=== PATIENT | female | born 2000 | race African-American/Black ===

== ENCOUNTER 2020-09-14 17:39 | Outpatient (REF) | payer OTHER, SELFPAY | END 2020-09-14 17:40 | disposition home or self-care (01) | LOC: HO.LAB 17:39 | PROVIDERS: Visit Provider Internal Medicine | DX: Z20.822 Contact with and (suspected) exposure to COVID-19 (principal) | CPT/HCPCS: 36415; C9803; U0003 ==

== ENCOUNTER 2022-11-25 17:03 | Emergency (ER) | payer OTHER, SELFPAY ==
--- NOTE | ~2022-11-25 | XR_ITS ---
X-ray cervical, thoracic and lumbar spine CLINICAL HISTORY: Fall. COMPARISON: X-ray cervical spine 10/26/2007. TECHNIQUE: 3 views of the cervical spine. 3 views of the thoracic spine. 3 views of the lumbar spine. FINDINGS: Cervical spine: Nonspecific straightening of the cervical lordosis with otherwise anatomic alignment. No acute compression deformity. No significant degenerative changes. No prevertebral soft tissue thickening. Thoracic spine: Mild S-shaped thoracolumbar curvature. No acute compression deformity or subluxation. Normal appearance of the posterior elements. No significant degenerative changes. No significant paraspinal soft tissue abnormality. Lumbar spine: No acute compression deformity or subluxation. No significant degenerative changes. No paraspinal soft tissue abnormality. XR/XR cervical spine 2V IMPRESSION: 1. Nonspecific straightening of the cervical lordosis. 2. No acute compression deformity or subluxation in the cervical, thoracic or lumbar spine.
--- NOTE | ~2022-11-25 | XR_ITS ---
X-ray cervical, thoracic and lumbar spine CLINICAL HISTORY: Fall. COMPARISON: X-ray cervical spine 10/26/2007. TECHNIQUE: 3 views of the cervical spine. 3 views of the thoracic spine. 3 views of the lumbar spine. FINDINGS: Cervical spine: Nonspecific straightening of the cervical lordosis with otherwise anatomic alignment. No acute compression deformity. No significant degenerative changes. No prevertebral soft tissue thickening. Thoracic spine: Mild S-shaped thoracolumbar curvature. No acute compression deformity or subluxation. Normal appearance of the posterior elements. No significant degenerative changes. No significant paraspinal soft tissue abnormality. Lumbar spine: No acute compression deformity or subluxation. No significant degenerative changes. No paraspinal soft tissue abnormality. XR/XR lumbar spine 2-3V IMPRESSION: 1. Nonspecific straightening of the cervical lordosis. 2. No acute compression deformity or subluxation in the cervical, thoracic or lumbar spine.
--- NOTE | ~2022-11-25 | XR_ITS ---
X-ray cervical, thoracic and lumbar spine CLINICAL HISTORY: Fall. COMPARISON: X-ray cervical spine 10/26/2007. TECHNIQUE: 3 views of the cervical spine. 3 views of the thoracic spine. 3 views of the lumbar spine. FINDINGS: Cervical spine: Nonspecific straightening of the cervical lordosis with otherwise anatomic alignment. No acute compression deformity. No significant degenerative changes. No prevertebral soft tissue thickening. Thoracic spine: Mild S-shaped thoracolumbar curvature. No acute compression deformity or subluxation. Normal appearance of the posterior elements. No significant degenerative changes. No significant paraspinal soft tissue abnormality. Lumbar spine: No acute compression deformity or subluxation. No significant degenerative changes. No paraspinal soft tissue abnormality. XR/XR thoracic spine 2V IMPRESSION: 1. Nonspecific straightening of the cervical lordosis. 2. No acute compression deformity or subluxation in the cervical, thoracic or lumbar spine.
[2022-11-25 17:54] VITALS: BP 111/71; PULSE 83; RESP 18; TEMP 36.3; O2SAT 99; BMI 36.4
--- NOTE | 2022-11-25 17:54 | ED.GENADULT ---
HPI - General Adult General Chief complaint: Back Pain/Injury <LINWOOD Spencer - Last Filed: 11/25/22 17:55> Stated complaint: Fall on 11/23 neck and back pain <LINWOOD Spencer - Last Filed: 11/25/22 17:55> Time Seen by Provider: 11/25/22 20:30 <LINWOOD Spencer - Last Filed: 11/25/22 17:55> Source: patient and RN notes reviewed <Bony Gaines - Last Filed: 11/25/22 21:06> Mode of arrival: ambulatory <Bony Gaines - Last Filed: 11/25/22 21:06> Limitations: no limitations <Bony Gaines - Last Filed: 11/25/22 21:06> History of Present Illness HPI narrative: 22-year-old female presents for evaluation after a fall that happened 2 days ago. Patient reports that or getting out of a car she slipped and fell backwards in a parking lot. She complains of mostly right lateral neck pain but also pain to her mid and lower back Denies hitting her head or losing consciousness. She is not on blood thinners for any reason. The patient states that she initially did not have significant pain at the time of the fall The pain worsened yesterday morning and then progressively worsened again today Her pain is he had of 10, worse with movement. She has tried heating pads, naproxen and Flexeril that she had left over from a previous prescription with minimal relief <Bony Gaines - Last Filed: 11/25/22 21:06> Related Data Home medications: Previous Rx's Medication Instructions Recorded cyclobenzaprine 10 mg tablet 10 mg PO TID PRN muscle spasm #20 11/25/22 tabs naproxen 500 mg tablet 500 mg PO BID PRN pain #20 tabs 11/25/22 <LINWOOD Spencer - Last Filed: 11/25/22 17:55> Allergies/adverse reactions: Allergies Allergy/AdvReac Type Severity Reaction Status Date / Time No Known Allergies Allergy Verified 11/25/22 17:54 <LINWOOD Spencer - Last Filed: 11/25/22 17:55> Review of Systems Constitutional: Constitutional: Reports as per HPI, Denies chills, Denies fever(s) and Denies headache(s) <Bony Freeman Last Filed: 11/25/22 21:06> ENT: Denies headache(s) and Reports neck pain <Bony Freeman Last Filed: 11/25/22 21:06> Cardiovascular: Cardiovascular: Denies chest pain and Denies dyspnea <Bonythor Freeman Last Filed: 11/25/22 21:06> Respiratory: Respiratory: Denies cough and Denies dyspnea <Bonythor Freeman Last Filed: 11/25/22 21:06> Musculoskeletal: Musculoskeletal: Reports back pain and Reports neck pain <Bonythor Freeman Last Filed: 11/25/22 21:06> Neurologic: Denies headache(s) and Denies focal weakness <Bony O' Last Filed: 11/25/22 21:06> PMFSH Social History Social History: Social History Advance Directives: No Advance Directives Information Provided: No <LINWOOD Spencer - Last Filed: 11/25/22 17:55> Physical Exam ED Vital Signs: Vital Signs - 24 hr 11/25/22 17:54 Temperature 97.3 F Pulse Rate 83 Respiratory Rate 18 Blood Pressure 111/71 Pulse Oximetry 99 Oxygen Delivery Method Room Air BMI result Body Mass Index 36.4 <LINWOOD Spencer - Last Filed: 11/25/22 17:55> Vital Signs - 24 hr 11/25/22 17:54 Temperature 97.3 F Pulse Rate 83 Respiratory Rate 18 Blood Pressure 111/71 Pulse Oximetry 99 Oxygen Delivery Method Room Air BMI result Body Mass Index 36.4 <Bony Gaines Last Filed: 11/25/22 21:06> Const General: healthy appearing, comfortable, no acute distress, alert and awake <Bony Gaines Last Filed: 11/25/22 21:06> Nutritional Appearance: well nourished <Bony Freeman Last Filed: 11/25/22 21:06> Orientation/consciousness: patient oriented x3 <Bony Gaines Last Filed: 11/25/22 21:06> HENMT Head: Yes normocephalic and Yes atraumatic <Bony Gaines Last Filed: 11/25/22 21:06> Throat: Yes posterior oropharynx normal < Filed: 11/25/22 21:06> Eyes Eyelids: Yes eyelids normal < Filed: 11/25/22 21:06> Conjunctivae: conjunctivae normal < Filed: 11/25/22 21:06> Sclerae: sclerae normal < Filed: 11/25/22 21:06> Corneas: corneas normal < Filed: 11/25/22 21:06> Pupils: Equal, round and reactive pupils present < Filed: 11/25/22 21:06> EOM: EOMs intact bilaterally < Filed: 11/25/22 21:06> Neck Other: Tenderness to the right lateral cervical paraspinous region the tenderness extends the right trapezius muscle group. No vertebral tenderness. Patient also has right thoracic paraspinous muscle tenderness, no step-offs or deformities < Filed: 11/25/22 21:06> Skin General skin exam: no rashes or lesions noted and elasticity normal < Filed: 11/25/22 21:06> Neuro General: patient oriented x3 < Filed: 11/25/22 21:06> Cranial nerves: Yes CN's II-XII intact bilaterally, Yes Equal, round and reactive pupils present and Yes Bilaterally intact EOM present < Filed: 11/25/22 21:06> Cognition (Neuro): normal cognition < Filed: 11/25/22 21:06> Motor exam (neuro): 5/5 motor strength present throughout < Filed: 11/25/22 21:06> Extrem Other: Moving all extremities well without any obvious deformities. < Filed: 11/25/22 21:06> Course Course Course Narrative: RME performed by Brionna Wyatt PA-C. Patient is a 22 year old assigned female at presenting to the emergency department with back pain after a fall. Patient states that she fell and now has back pain and neck pain. Imaging ordered. Patient placed back in the waiting room pending room availability and results. <LINWOOD Spencer - Last Filed: 11/25/22 17:55> Medications Administered Discontinued Medications Generic Name Dose Route Start Last Admin Trade Name Freq PRN Reason Stop Dose Admin Ketorolac Tromethamine 30 mg 11/25/22 20:36 11/25/22 20:42 Ketorolac Tromethamine 30 Mg/Ml Vial IM 11/25/22 20:37 30 mg ONCE ONE Administration <LINWOOD Spencer - Last Filed: 11/25/22 17:55> Medications Administered Discontinued Medications Generic Name Dose Route Start Last Admin Trade Name Freq PRN Reason Stop Dose Admin Ketorolac Tromethamine 30 mg 11/25/22 20:36 11/25/22 20:42 Ketorolac Tromethamine 30 Mg/Ml Vial IM 11/25/22 20:37 30 mg ONCE ONE Administration <Bony Gaines - Last Filed: 11/25/22 21:06> Medical Decision Making Medical Decision Making MDM Narrative: 22-year-old female presents for evaluation of right cervical paraspinous muscle tenderness and trapezius tenderness after fall 2 days ago. X-rays show no evidence of compression fracture or deformity. Pain is likely a muscle spasm, will treat with Toradol IM. The patient states that she is out of her previous prescriptions now. She would like to continue using the Flexeril which will be prescribed for her. No evidence of neuro deficits <Bony Gaines - Last Filed: 11/25/22 21:06> Differential Diagnosis Muscle strain Radiculopathy A compression fracture Back pain Neck pain Spasmodic torticollis <Bony Gaines - Last Filed: 11/25/22 21:06> Discharge Plan Discharge Clinical Impression: Cervical muscle strain <LINWOOD Spencer - Last Filed: 11/25/22 17:55> Patient Disposition: Home, Self-Care <LINWOOD Spencer - Last Filed: 11/25/22 17:55> Instructions: Cervical Strain (ED) <LINWOOD Spencer - Last Filed: 11/25/22 17:55> Additional Instructions: Your x-rays do not show any evidence of fracture Your pain is most likely related to muscle spasm Continue using naproxen. You may also take Flexeril up to 3 times daily as needed for muscle spasms Continue with warm compresses <LINWOOD Spencer - Last Filed: 11/25/22 17:55> Prescriptions: New cyclobenzaprine 10 mg tablet 10 mg PO TID PRN (Reason: muscle spasm) Qty: 20 0RF naproxen 500 mg tablet 500 mg PO BID PRN (Reason: pain) Qty: 20 0RF <LINWOOD Spencer - Last Filed: 11/25/22 17:55> Stand Alone Forms: Work/School Release <LINWOOD Spencer - Last Filed: 11/25/22 17:55>
[2022-11-25] MEDS: Ketorolac Tromethamine 30 MG/ML VIAL IM (20:42)
== END 2022-11-25 21:17 | disposition home or self-care (01) ==
PROVIDERS: Emergency Provider Emergency Medicine
DX: S16.1XXA Strain of muscle, fascia and tendon at neck level, initial encounter (principal); W17.89XA Other fall from one level to another, initial encounter; Y93.89 Activity, other specified; Y92.481 Parking lot as the place of occurrence of the external cause; Y99.9 Unspecified external cause status
CPT/HCPCS: 72040; 72070; 72100; 96372; 99283; 99284; J1885

== ENCOUNTER 2023-02-11 12:24 | Emergency (ER) | payer OTHER, SELFPAY ==
[2023-02-11 13:13] VITALS: BP 148/93; PULSE 97; RESP 16; TEMP 36.3; O2SAT 100; BMI 34.0
--- NOTE | 2023-02-11 13:14 | ED.SKABFB ---
HPI - Skin/Abscess/Foreign Bdy General Chief complaint: General Medical Stated complaint: L Armpit Abscess Time Seen by Provider: 02/11/23 14:56 History of Present Illness HPI narrative: patient with history of hidradenitis suppurative complains of no abscess growing in left axilla, no fever no chills no other complaint Related Data Previous Rx's Medication Instructions Recorded cyclobenzaprine 10 mg tablet 10 mg PO TID PRN muscle spasm #20 11/25/22 tabs naproxen 500 mg tablet 500 mg PO BID PRN pain #20 tabs 11/25/22 doxycycline hyclate 100 mg capsule 100 mg PO BID 7 days #14 caps 02/11/23 ibuprofen 600 mg tablet 600 mg PO Q6H PRN pain #20 tabs 02/11/23 Allergies Allergy/AdvReac Type Severity Reaction Status Date / Time No Known Allergies Allergy Verified 11/25/22 17:54 ON LICENSE OF [facility] Past Medical History Source: nursing notes reviewed Social History Social History Smoked in Last 30 Days: No Use of substances other than those prescribed or required for medical reasons: No Advance Directives: No Advance Directives Information Provided: No Physical Exam Vital Signs: Vital Signs: Last Vital Signs Temp 98.1 F 02/11/23 16:01 Pulse 99 02/11/23 16:01 Resp 16 02/11/23 16:01 BP 109/72 02/11/23 16:01 Pulse Ox 100 02/11/23 16:01 O2 Del Method Room Air 02/11/23 16:01 BMI result Body Mass Index 34.0 general appearance no distress Neck is supple Respiratory no distress Left axilla exam there is an area of fluctuance redness and some discharge of pus in left axilla, there other hard indurated areas, no other surrounding erythema, she can range her shoulder fully Course Course Course Narrative: This is an RME: Additional HPI, ROS, PE not included below will be deferred to primary provider. Patient is a 22-year-old female presents emergency department for evaluation abscess Patient is followed by Dermatology for hydradenitis suppurative for which she is prescribed Remicade, denies doxycycline usage. Two days with left axilla abscess, and pain. Denies fevers/chills Plan: placed in pending bed availability. Procedure note left axilla abscess is cleansed with Betadine A anesthesia is 8 cc of 1% lidocaine A 1 cm incision is made with discharge of copious pus Packing is placed Dressing placed Patient is discharged Medications Administered Discontinued Medications Generic Name Dose Route Start Last Admin Trade Name Mahinq PRN Reason Stop Dose Admin Doxycycline Monohydrate 100 mg 02/11/23 15:45 02/11/23 16:00 Doxycycline Monohydrate 100 Mg Capsule PO 02/11/23 15:46 100 mg ONCE ONE Administration Lidocaine HCl 5 ml 02/11/23 15:45 02/11/23 16:42 Lidocaine Hcl 1 % Mpf 5 Ml Vial SUBCUT 02/11/23 15:46 5 ml ONCE ONE Administration Lidocaine HCl 5 ml 02/11/23 15:48 02/11/23 16:42 Lidocaine Hcl 1 % Mpf 5 Ml Vial SUBCUT 02/11/23 15:49 5 ml ONCE ONE Administration Discharge Plan Discharge Clinical Impression: Abscess Patient Disposition: Home, Self-Care Additional Instructions: return in 2 days for packing removal and wound check Return any time for spreading redness worse pain and swelling fever any sign of worsening infection any worse condition or any concerns Prescriptions: New doxycycline hyclate 100 mg capsule 100 mg PO BID 7 Days Qty: 14 0RF ibuprofen 600 mg tablet 600 mg PO Q6H PRN (Reason: pain) Qty: 20 0RF No Action cyclobenzaprine 10 mg tablet 10 mg PO TID PRN (Reason: muscle spasm) Qty: 20 0RF naproxen 500 mg tablet 500 mg PO BID PRN (Reason: pain) Qty: 20 0RF Stand Alone Forms: Work/School Release
[2023-02-11] MEDS: Doxycycline Monohydrate 100 MG CAPSULE PO (16:00)
[2023-02-11 16:01] VITALS: BP 109/72; PULSE 99; RESP 16; TEMP 36.7; O2SAT 100
[2023-02-11] MEDS: Lidocaine HCl 1 % MPF 5 ML VIAL SUBCUT ×2 (16:42)
[2023-02-11 17:29] VITALS: BP 119/65; PULSE 90; RESP 16; TEMP 36.6; O2SAT 97
[2023-02-11] MEDS: Ibuprofen 600 MG TABLET PO (17:46)
== END 2023-02-11 17:47 | disposition home or self-care (01) ==
PROVIDERS: Emergency Provider Internal Medicine
DX: L02.412 Cutaneous abscess of left axilla (principal); Z79.899 Other long term (current) drug therapy
CPT/HCPCS: 10060; 99284

== ENCOUNTER 2023-02-13 10:15 | Emergency (ER) | payer OTHER, SELFPAY ==
[2023-02-13 10:18] VITALS: BP 113/74; PULSE 95; RESP 19; TEMP 36.6; O2SAT 100; BMI 35.9
--- NOTE | 2023-02-13 11:52 | ED_ITS ---
HPI - Wound/Laceration General Chief Complaint: Wound/Laceration Stated Complaint: Wound Check Time Seen by Provider: 02/13/23 11:39 Source: patient and RN notes reviewed Mode of arrival: ambulatory Limitations: no limitations History of Present Illness HPI narrative: This is a [id number] presenting to the emergency department for a wound check. Patient reports that she was seen on February 11 for a left axillary abscess which was incised and drained. Awake was placed at that time. Patient reports that she has been taking the prescribed doxycycline as directed and applying warm compresses multiple times a day. She reports improvement of her symptoms however still reports pain in her left axilla. Denies any fevers, chills, chest pain, shortness of breath, nausea, vomiting, or diarrhea. She has a history of abscesses in the past and is currently being followed by her manager warehouse for hiradenitis suppurativa. No other complaints or concerns at this time. Onset (ago): day(s) Place: home Patient tetanus UTD: No Associated symptoms: none Related Data Previous Rx's Medication Instructions Recorded cyclobenzaprine 10 mg tablet 10 mg PO TID PRN muscle spasm #20 11/25/22 tabs naproxen 500 mg tablet 500 mg PO BID PRN pain #20 tabs 11/25/22 doxycycline hyclate 100 mg capsule 100 mg PO BID 7 days #14 caps 02/11/23 ibuprofen 600 mg tablet 600 mg PO Q6H PRN pain #20 tabs 02/11/23 cephalexin 500 mg capsule 500 mg PO QID 7 days #28 caps 02/13/23 Allergies Allergy/AdvReac Type Severity Reaction Status Date / Time No Known Allergies Allergy Verified 02/13/23 10:18 Review of Systems Review of Systems: Constitutional: No Weight loss, No Fever, No Chills ENT/Mouth: No Ear Pain, No Nasal Congestion, No Sinus Pain, No Hoarseness, No sore throat, No Rhinorrhea, No Swallowing Difficulty Cardiovascular: No Chest Pain, No SOB Respiratory: No Cough, No Sputum, No Wheezing Gastrointestinal: No Nausea, No Vomiting, No Diarrhea, No Constipation, No Abdominal pain Genitourinary: No Dysuria, No Urinary Frequency, No Hematuria, No Urinary Incontinence/retention, No Urgency, No Flank Pain Musculoskeletal: No joint pain, No Myalgias, No Joint Swelling Skin: No Skin Lesions, No rash Neuro: No Weakness, No Numbness, No Paresthesias [facility] Social History Social History Alcohol intake: current Alcohol intake frequency: holidays/special occasions only Physical Exam Vital Signs: Vital Signs: Last Vital Signs Temp 98 F 02/13/23 10:18 Pulse 95 02/13/23 10:18 Resp 19 02/13/23 10:18 BP 113/74 02/13/23 10:18 Pulse Ox 100 02/13/23 10:18 O2 Del Method Room Air 02/13/23 10:18 BMI result Body Mass Index 35.9 Const: Other: General: Awake, alert, and oriented X3. No acute distress. HEENT: Normal inspection CVS: Normal heart rate and rhythm. Pulses normal. Respiratory: No respiratory distress Skin: Left axilla with multiple hard, indurated areas, there is a 1 cm open area with minimal yellow/green purulent drainage expressed, with wick in place, scant active bleeding when applying pressure, no fluctuance. No surrounding erythema, edema or fluctuance. Full range of motion of the left shoulder. No streaking noted Extremities: Normal to inspection Neuro: Oriented X 3. No motor deficit. No sensory deficit. Medical Decision Making Medical Decision Making MDM Narrative: 22-year-old female, with past medical history of suppurativa hidradenitis, presenting to the emergency department for evaluation of wound check. Patient had an incision and drainage performed 2 days ago with a with place. On arrival, vital signs stable, patient afebrile. Left axilla with multiple hardened areas, no fluctuance throughout, wick was removed with no yellow/green drainage expressed. Scant minimal blood noted upon palpation. Patient does not he needed additional incision and drainage today. Patient has been taking doxycycline however added Keflex for more broad coverage given appearance. Tdap was updated as she is unsure when her last tetanus was. No fevers or chills. Patient educated the importance of taking antibiotics and applying warm compresses. Patient given return precautions. Patient is stable for discharge. Differential Diagnosis Differential Diagnoses: The differential diagnosis associated with the presentation includes Abscess, cellulitis, cyst, hematoma, suppurativa hidradenitis Discharge Plan Discharge Clinical Impression: Abscess Patient Disposition: Home, Self-Care Instructions: Abscess (ED), Abscess Follow-up (ED) Additional Instructions: Please continue taking doxycycline at home, I am adding Keflex on to your antibiotic regimen. Please take as prescribed. Continue applying warm compresses to the area multiple times a day. Please call your manager warehouse today as you may want to be followed more closely. Watch for any new or worsening symptoms including but not limited to worsening swelling, fevers, chills. If any of these symptoms occur or any other worsening symptoms please return for re-evaluation. Prescriptions: New cephalexin 500 mg capsule 500 mg PO QID 7 Days Qty: 28 0RF No Action cyclobenzaprine 10 mg tablet 10 mg PO TID PRN (Reason: muscle spasm) Qty: 20 0RF naproxen 500 mg tablet 500 mg PO BID PRN (Reason: pain) Qty: 20 0RF doxycycline hyclate 100 mg capsule 100 mg PO BID 7 Days Qty: 14 0RF ibuprofen 600 mg tablet 600 mg PO Q6H PRN (Reason: pain) Qty: 20 0RF Stand Alone Forms: Work/School Release
[2023-02-13] MEDS: Diphth,Pertus(ACell),Tet Adult 0.5 ML SYRINGE IM (12:12)
== END 2023-02-13 12:14 | disposition home or self-care (01) ==
PROVIDERS: Emergency Provider Emergency Medicine
DX: S40.812A Abrasion of left upper arm, initial encounter (principal); L02.412 Cutaneous abscess of left axilla; X58.XXXA Exposure to other specified factors, initial encounter; Y93.9 Activity, unspecified; Y92.9 Unspecified place or not applicable; Y99.9 Unspecified external cause status; Z79.899 Other long term (current) drug therapy; Z23 Encounter for immunization
CPT/HCPCS: 90471; 90715; 99283; 99284